=== PATIENT | female | born 1995 | race African-American/Black ===

== ENCOUNTER 2023-07-28 21:36 | Emergency (ER) | payer SELFPAY ==
[2023-07-28 21:55] VITALS: BP 134/85; PULSE 86; RESP 18; TEMP 98.8; BMI 39.3
[2023-07-28] MEDS ORDERED: ACETAMINOPHEN 500 MG TABLET (FP) PO ONE (22:57)
== END 2023-07-28 23:03 | disposition home or self-care (01) ==
LOC: JERFT 21:36 → JER 21:36 → JERFT 23:03
DX: R51.9 Headache, unspecified (principal); R09.81 Nasal congestion; Z20.822 Contact with and (suspected) exposure to COVID-19
CPT/HCPCS: 0241U-QW; 99283-25